=== PATIENT | female | born 2000 | race Caucasian/White ===

== ENCOUNTER 2022-08-30 16:22 | Outpatient (CLI) | payer OTHER, SELFPAY | END 2022-08-30 16:23 | disposition home or self-care (01) | LOC: AMB 10-08 19:37 | PROVIDERS: Visit Provider Family Medicine | DX: S69.91XA Unspecified injury of right wrist, hand and finger(s), initial encounter (principal); W45.0XXA Nail entering through skin, initial encounter; Y92.214 College as the place of occurrence of the external cause | CPT/HCPCS: A0998 ==

== ENCOUNTER 2022-08-30 16:48 | Emergency (ER) | payer OTHER, SELFPAY ==
[2022-08-30 17:24] VITALS: BP 117/76; PULSE 86; RESP 16; TEMP 36.5; O2SAT 100; BMI 22.1
--- NOTE | 2022-08-30 20:59 | ED_ITS ---
HPI - Extremity Injury (Upper) General Chief Complaint: Extremity Pain/Injury, Upper Stated Complaint: Splinter Under Finger Time Seen by Provider: 08/30/22 20:31 History of Present Illness HPI narrative: 21-year-old young woman with a friend presenting to the emergency department with complaint of splinter underneath her right 5th finger fingernail. Apparently was heading down some stairs running her hand over the railing when sustained this injury. She says she was nauseated and about to faint with initial insult. Current on tetanus vaccination. Related Data Home Medications Medication Instructions Recorded Confirmed No Known Home Medications 08/30/22 08/30/22 Allergies Allergy/AdvReac Type Severity Reaction Status Date / Time No Known Drug Allergies Allergy Verified 08/30/22 17:23 Review of Systems Status of ROS: Reports: 6 or more systems reviewed and unremarkable except as noted in History and below PFSH PFSH Social History Smoking Status: Never smoker How often do you have a drink containing alcohol: never AUDIT-C Alcohol total score: 0 Non-prescribed substance use: denies use Exam Narrative: Exam Narrative: Pleasant. Tall. Breathing easily. Has been icing her right 5th finger. It is cold distally. There is clear evidence of a foreign body linear guesstimating about an 8th inch in width that has been inserted the full length of the fingernail. No bleeding. No other injury sustained. It does not appear particularly tender to manipulation of the most distal aspect of the finger pad. The foreign body is visible just under the edge of the nail Const: Vital Signs, click to edit/add: Vital Signs - 24 hr 08/30/22 17:24 Temperature 97.7 F Pulse Rate [Pulse Oximeter] 86 Respiratory Rate 16 Blood Pressure [Ri ght Upper Arm] 117/76 Pulse Oximetry 100 Oxygen Delivery Me thod Room Air Documenting provider has reviewed patient's vital signs: yes Course Course Hospital Course: I discussed course of action including quick extraction. She would like to proceed with digital block. A return to find her icing the proximal aspect of her finger anticipating block. Blocked this area with Marcaine. Still with some sharp sensation distally so proceeded to block the distal aspect of the middle phalanx as well. This achieved ultimately full anesthesia. The finger was quite clean and able to grasp without difficulty the splinter and removed without difficulty. Very light bleeding. Antibiotic ointment and Band-Aid was placed. Instructions to go home and soak as they have been waiting to be seen here in the emergency department for quite some time. Vital Signs Vital signs: Initial Vital Signs Temperature 97.7 F 08/30/22 17:24 Temperature Source Temporal Artery Scan 08/30/22 17:24 Pulse Rate 86 08/30/22 17:24 Pulse Rhythm 08/30/22 17:24 Respiratory Rate 16 08/30/22 17:24 Blood Pressure 117/76 08/30/22 17:24 Blood Pressure Mean 89 08/30/22 17:24 Blood Pressure Position Sitting 08/30/22 17:24 Pulse Oximetry 100 08/30/22 17:24 Oxygen Delivery Method 08/30/22 17:24 Vital Signs Temperature 97.7 F 08/30/22 17:24 Pulse Rate 86 08/30/22 17:24 Respiratory Rate 16 08/30/22 17:24 Blood Pressure 117/76 08/30/22 17:24 Pulse Oximetry 100 08/30/22 17:24 Oxygen Delivery Method 08/30/22 17:24 Temperature 97.7 F 08/30/22 17:24 Pulse Rate 86 08/30/22 17:24 Respiratory Rate 16 08/30/22 17:24 Blood Pressure 117/76 08/30/22 17:24 Pulse Oximetry 100 08/30/22 17:24 Oxygen Delivery Method 08/30/22 17:24 Discharge Plan Discharge Clinical Impression: Wood splinter in finger Patient Disposition: Home, Self-Care Condition: Improved Additional Instructions: When you get home, put this finger to soak in warm soapy or warm epsom salt water for 30 minutes or so. I'd do this a couple of times daily over the next couple of days. Ibuprofen, elevation for discomfort. watch for spreading redness to the first knuckle, marked increase in pain or swelling, purulent drainage. Prescriptions: No Action No Known Home Medications Follow Up/Referrals: Provider,Not a Local [Primary Care Provider] - Stand Alone Forms: [facility] Info Instructions
[2022-08-30] MEDS: BUPIVACAINE 0.25% 30 ML INJECTION (21:00)
--- NOTE | 2022-08-30 21:07 | ED.NURSE ---
Pt r 5th digit still numb, covered with bandaid. dc instructions given, questions answered.
== END 2022-08-30 21:11 | disposition home or self-care (01) ==
PROVIDERS: Emergency Provider Family Medicine
DX: S60.456A Superficial foreign body of right little finger, initial encounter (principal)
CPT/HCPCS: 10120; 99283; J3490